=== PATIENT | male | born 1940 | race Caucasian/White ===

== ENCOUNTER 2021-07-12 22:39 | Emergency (ER) | payer MEDICARE ==
[~2021-07-12] VITALS: Ht 182.9 cm; Wt 108.9 kg
[2021-07-12] MEDS ORDERED: FAMOTIDINE 20 MG/2 ML VIAL IV ONE (23:45)
[2021-07-12] MEDS ORDERED: ONDANSETRON HCL INJ 2MG/ML 2ML 2 MG/ML VIAL IV PRN (23:45)
[2021-07-12] MEDS ORDERED: ASPIRIN 81 MG CHEW TAB PO ONE (23:45)
[2021-07-13] MEDS ORDERED: ASPIRIN 325 MG TAB ONE (00:38)
[2021-07-13] MEDS ORDERED: ONDANSETRON HCL INJ 2MG/ML 2ML 2 MG/ML VIAL ONE (00:38)
[2021-07-13] MEDS ORDERED: FAMOTIDINE 20 MG/2 ML VIAL IV ONE (00:38)
[2021-07-13] MEDS ORDERED: ENOXAPARIN SODIUM INJ 100 MG/ML SYR SC STA (01:11)
[2021-07-13] MEDS ORDERED: ENOXAPARIN SODIUM INJ 100 MG/ML SYR SC ONE (01:20)
== END 2021-07-13 03:00 | disposition other institution (70) ==
LOC: FSED 22:45
DX: R53.1 Weakness (principal); I24.9 Acute ischemic heart disease, unspecified; I48.91 Unspecified atrial fibrillation; I95.9 Hypotension, unspecified; R94.31 Abnormal electrocardiogram [ECG] [EKG]; Z20.822 Contact with and (suspected) exposure to COVID-19
CPT/HCPCS: 71045; 80053; 81003; 82553; 84484; 85025; 93005; 99284; J1650; J2405; U0002